=== PATIENT | male | born 1950 | race Caucasian/White ===

== ENCOUNTER → 2016-07-30 | Outpatient (CLI) | payer BC ==
[~2016-07-30] VITALS: Ht 185.4 cm; Wt 177.1 kg
[~2016-07-30] MED LIST: ASPIRIN325 M1 PO; ASPIRIN325 MG PO; B COMPLEX1 EACH PO; CELEXA20 MG PO; CO Q-10400 MG PO; COLACE; CYANOCOBALAM1000 MCG PO; ENDOCET 5-3251 EACH PO; FENOFIBRATE160 MG PO; GINKGO BILOBA120 M1 PO; HYDROCODON-ACE1 EAC7 PO; JANUMET 50/11 TABLET PO; JANUMET 50/51 TABLET PO; KRILL OIL500 MG PO; LASIX10 MG PO; LEVEMIR FL100 UNIT/1 SC; LEVEMIR100 UNIT/1 SQ; LEXAPRO20 MG PO; LIPITOR40 MG PO; LISINOPRIL10 MG PO; LISINOPRIL20 MG PO; LITE COAT ASPI325 M1 PO; METOPROLOL; METOPROLOL TAR100 MG PO; MUSCLE RELAXER; NOVOLOG PE100 UNITS/ SC; OCUVITE TABLET1 EACH PO; OMEGA 3 1,0001 EAC1 PO; OMEGA 3 1,0001 EACH PO; PERCOCET 5/31 TABLET PO; PERCOCET 7.51 TABLET PO; POTASSIUM CHLO10 MEQ PO; PRINIVIL20 MG PO; SEPTRA DS TABL1 EACH PO; TRESIBA FL200 UNIT/1 SC; VALIUM5 MG PO; VICODIN,LORT1 TABLET PO; VICTOZA0.6 MG/0.1 SC; VITAMIN C500 M1 PO; VITAMIN D3400 UNI1 PO; VITAMIN D3400 UNIT PO
[2016-07-30 15:08] LABS: POINT-OF-CARE METER ID UU13113694
[2016-07-30 16:26] LABS: POINT-OF-CARE METER ID UU13113819
== END | disposition home or self-care (01) ==
LOC: AMB 07-29 14:45
PROVIDERS: Specialist
PROC: 0DJD8ZZ Inspection of Lower Intestinal Tract, Via Natural or Artificial Opening Endoscopic (ICD-10-PCS; principal; 2016-07-30)
DX: Z09 Encounter for follow-up examination after completed treatment for conditions other than malignant neoplasm (principal); Z86.010 Personal history of colon polyps; K57.90 Diverticulosis of intestine, part unspecified, without perforation or abscess without bleeding; Z80.0 Family history of malignant neoplasm of digestive organs; K64.9 Unspecified hemorrhoids; E11.9 Type 2 diabetes mellitus without complications; I10 Essential (primary) hypertension; E78.5 Hyperlipidemia, unspecified; G47.30 Sleep apnea, unspecified; M19.90 Unspecified osteoarthritis, unspecified site
CPT/HCPCS: 82948; 93005; B4087; J2250; J3010